=== PATIENT | male | born 1990 | race African-American/Black ===

== ENCOUNTER 2016-10-12 13:13 | Emergency (ER) | payer OTHER ==
[~2016-10-12] VITALS: Ht 185.4 cm; Wt 83.0 kg
[~2016-10-12 13:13] MED LIST: FLEXERIL10 MG PO; MOTRIN600 MG PO; NAPROSYN500 MG PO; PEN-VEE K,VEET250 MG PO; PEN-VEE K,VEET500 MG PO; no home meds
[2016-10-12] MEDS ORDERED: MOTRIN800 MG PO (16:39)
[2016-10-12] MEDS ORDERED: PREDNISONE20 MG PO (16:39)
[2016-10-12] MEDS ORDERED: FLEXERIL10 MG PO (16:39)
[2016-10-12 17:17] VITALS: BP 116/62
== END 2016-10-12 17:19 | disposition home or self-care (01) ==
LOC: EME 13:13
DX: M54.31 Sciatica, right side (principal); F17.200 Nicotine dependence, unspecified, uncomplicated
CPT/HCPCS: 72100; 99281; 99284; J1885; J7512